=== PATIENT | female | born 1990 | race Caucasian/White ===

== ENCOUNTER 2022-01-28 19:41 | Emergency (ER) | payer SELFPAY ==
[~2022-01-28] VITALS: Ht 160 cm; Wt 61.2 kg
[2022-01-28] MEDS ORDERED: KETOROLAC TROMETHAMINE 30 MG/ML VIAL IV STA (20:02)
[2022-01-28] MEDS ORDERED: KETOROLAC TROMETHAMINE 30 MG/ML VIAL ONE (20:22)
[2022-01-28 20:44] LABS: BASOPHILS # (AUTO) 0.1 (0.0-0.1); BASOPHILS % 0.5 % (0.0-1.0); EOSINOPHILS # (AUTO) 0.4 (0.0-0.4); EOSINOPHILS % 3.2 % (0.0-6.0); HEMATOCRIT 41.8 % (34.2-44.1); HEMOGLOBIN 14.3 g/dL (12.0-16.0); LYMPHOCYTES # (AUTO) 1.8 (1.0-3.2); LYMPHOCYTES % 14.6 % (18.0-39.1); MEAN CORPUSCULAR HEMOGLOBIN 31.6 pg (28-32); MEAN CORPUSCULAR HGB CONC 34.2 g/dL (31-35); MEAN CORPUSCULAR VOLUME 92.5 fL (81-99); MONOCYTES % 7.9 % (4.4-11.3); NEUTROPHILS # (AUTO) 9.3 (2.1-6.9); NEUTROPHILS % 73.6 % (38.7-80.0); PLATELET COUNT 251 x10e3/uL (140-360); RED BLOOD COUNT 4.52 x10e6/uL (3.6-5.1); RED CELL DISTRIBUTION WIDTH 12.1 % (11.7-14.4)
[2022-01-28 20:47] LABS: CLARITY,URINE CLOUDY (CLEAR); COLOR,URINE YELLOW (YELLOW)
[2022-01-28 20:48] LABS: AMPHETAMINES SCREEN,URINE POSITIVE (NEGATIVE); KETONES,URINE NEGATIVE (NEGATIVE); LEUKOCYTE ESTERASE ,URINE NEGATIVE (NEGATIVE); NITRITE,URINE NEGATIVE (NEGATIVE); PHENCYCLIDINE SCREEN,URINE NEGATIVE (NEGATIVE); PROTEIN,URINE DIPSTICK NEGATIVE (NEGATIVE)
[2022-01-28 20:49] LABS: BENZODIAZEPINES SCREEN,URINE NEGATIVE (NEGATIVE)
[2022-01-28 20:50] LABS: URINE UROBILINOGEN 0.2 mg/dL (0.2 - 1)
[2022-01-28 20:59] LABS: ALBUMIN 3.8 g/dL (3.5-5.0); ALBUMIN/GLOBULIN RATIO 1.1 (0.8-2.0); ANION GAP 14.5 mmol/L (8-16); CALCIUM 9.5 mg/dL (8.4-10.2); CREATININE, SERUM 0.85 mg/dL (0.57-1.11); POTASSIUM 3.5 mmol/L (3.5-5.1)
[2022-01-28] MEDS ORDERED: KETOROLAC TROME10 MG PO (21:20)
[2022-01-28] MEDS ORDERED: BACTRIM DS TAB1 EACH PO (21:20)
[2022-01-28] MEDS ORDERED: CEPHALEXIN500 MG PO (21:20)
[2022-01-28 21:23] LABS: BACTERIA,URINE MODERATE /HPF; CALCIUM OXALATE CRYSTALS,UR MANY (FEW); EPITHELIAL CELLS,URINE MANY /LPF; MUCUS,URINE MANY (RARE)
== END 2022-01-28 21:24 | disposition home or self-care (01) ==
LOC: ER 19:48
DX: L03.114 Cellulitis of left upper limb (principal); F15.10 Other stimulant abuse, uncomplicated; F17.210 Nicotine dependence, cigarettes, uncomplicated
CPT/HCPCS: 36415; 80053; 80307; 81001; 81025; 85025; 99284; J1885; J2543

== ENCOUNTER 2022-03-02 20:43 | Emergency (ER) | payer SELFPAY ==
[~2022-03-02] VITALS: Ht 160 cm; Wt 61.2 kg
[~2022-03-02 20:43] MED LIST: BACTRIM DS TAB1 EACH PO; CEPHALEXIN500 MG PO; KETOROLAC TROME10 MG PO
[2022-03-02] MEDS ORDERED: CEPHALEXIN500 MG PO (21:18)
[2022-03-02] MEDS ORDERED: BACTRIM DS TAB1 EACH PO (21:18)
[2022-03-02] MEDS ORDERED: TRIMETHOPRIM/SULFAMETHOXAZOLE 160-800 MG TAB PO ONE (21:30)
[2022-03-02] MEDS ORDERED: TRIMETHOPRIM/SULFAMETHOXAZOLE 160-800 MG TAB ONE (21:43)
[2022-03-02] MEDS ORDERED: KETOROLAC TROME10 MG PO (21:53)
== END 2022-03-02 21:35 | disposition home or self-care (01) ==
LOC: ER 20:53
DX: L02.413 Cutaneous abscess of right upper limb (principal); F15.10 Other stimulant abuse, uncomplicated; F17.210 Nicotine dependence, cigarettes, uncomplicated
CPT/HCPCS: 99283